=== PATIENT | female | born 1975 | race Two or more races ===

== ENCOUNTER 2024-01-21 09:30 | Emergency (ER) | payer MEDICAID ==
--- NOTE | 2024-01-21 09:51 | ED Physician Documentation ---
PD HPI URI - Stated complaint Stated Complaint: SORE THROAT,SOA,CRACKLING,LOWER BACK PX - Chief complaint Chief Complaint: Resp - History obtained from History obtained from: Patient - History of Present Illness Timing - onset: How many days ago (6) Timing duration: Days (6) Timing details: Abrupt onset, Still present Associated symptoms: Chills, Rhinorrhea, Dry cough, Chest pain, Dyspnea. No: NVD Contributing factors: No: Sick contact, Travel, Immunocompromised Similar symptoms before: Has not had sx before Review of Systems Constitutional: reports: Chills, Myalgias, Fatigue Nose: reports: Rhinorrhea / runny nose, Congestion Throat: denies: Sore throat Cardiac: reports: Chest pain / pressure Respiratory: reports: Dyspnea, Cough, Wheezing GI: reports: Nausea. denies: Vomiting, Diarrhea Skin: denies: Rash PD PAST MEDICAL HISTORY - Past Medical History Past Medical History: Yes Cardiovascular: None Respiratory: None Neuro: None Endocrine/Autoimmune: None GI: None [employer]: None : Kidney stones HEENT: None Psych: None Musculoskeletal: Osteoarthritis Derm: None - Past Surgical History Past Surgical History: Yes General: Appendectomy - Present Medications Home Medications: Ambulatory Orders Medication Instructions Recorded Confirmed Albuterol Sulf [Ventolin Hfa 1 - 2 puffs INH Q4HR PRN #1 each 01/21/24 Inhaler] Benzonatate [Tessalon] 100 mg PO TID PRN #20 cap 01/21/24 HYDROcod/ACETAM 5/325 [[place] 5/325] 1 ea PO Q6H PRN #10 tablet 01/21/24 Ondansetron Odt [Zofran] 4 mg TL Q6H PRN #10 tablet 01/21/24 dexAMETHasone [Decadron] 4 mg PO DAILY #5 tablet 01/21/24 - Allergies Allergies/Adverse Reactions: Allergies Allergy/AdvReac Type Severity Reaction Status Date / Time No Known Drug Allergies Allergy Verified 01/21/24 09:33 - Social History Does the pt smoke?: No Smoking Status: Never smoker Does the pt drink ETOH?: No Does the pt have substance abuse?: No - Immunizations Immunizations are current?: Yes PD ED PE NORMAL - Vitals Vital signs reviewed: Yes - General General: Alert and oriented X 3, Well developed/nourished, Other (appears in pain with coughing and deep breathing. ) - Neck Neck: Supple, no meningeal sign, No adenopathy - Cardiac Cardiac: RRR, No murmur - Respiratory Respiratory: No respiratory distress. No: Clear bilaterally (exp wheezes without coarse sounds. ) - Abdomen Abdomen: Soft, Non tender - Derm Derm: Normal color, Warm and dry Results - Vitals Vitals: Oxygen O2 Source Room air - Labs Labs: Microbiology 01/21/24 09:45 Group A Strep Throat Culture - Preliminary Throat CULTURE IN PROGRESS. RESULTS TO FOLLOW. Laboratory Tests 01/21/24 01/21/24 01/21/24 09:45 09:45 10:29 Sodium 137 Potassium 3.5 Chloride 106 Carbon Dioxide 24 Anion Gap 7.0 BUN 10 Creatinine 0.5 L Estimated GFR (MDRD) 131 Glucose 102 Calcium 9.2 Total Bilirubin 0.7 AST 20 ALT 33 Alkaline Phosphatase 87 Total Protein 7.1 Albumin 3.9 Globulin 3.2 Albumin/Globulin Ratio 1.2 Lipase < 10 L Nasal Adenovirus (PCR) NOT DETECTED Nasal B. parapertussis DNA (PCR) NOT DETECTED Nasal Coronavir 229E PCR NOT DETECTED Nasal Coronavir HKU1 PCR DETECTED A Nasal Coronavir NL63 PCR NOT DETECTED Nasal Coronavir OC43 PCR DETECTED A Nasal Enterovir/Rhinovir PCR NOT DETECTED Nasal Influenza B PCR NOT DETECTED Nasal Influenza A PCR NOT DETECTED Nasal Parainfluen 1 PCR NOT DETECTED Nasal Parainfluen 2 PCR NOT DETECTED Nasal Parainfluen 3 PCR NOT DETECTED Nasal Parainfluen 4 PCR NOT DETECTED Nasal RSV (PCR) NOT DETECTED Nasal B.pertussis DNA PCR NOT DETECTED Nasal C.pneumoniae (PCR) NOT DETECTED Bhupendra Human Metapneumo PCR NOT DETECTED Nasal M.pneumoniae (PCR) NOT DETECTED Nasal SARS-CoV-2 (PCR) NOT DETECTED Group A Strep Rapid Negative - Rads (name of study) chest xray Relevant Findings:: Prelim report reviewed (bibasilar atelectasis vs small infiltrates. ), EMP independent interpretation of test PD Medical Decision Making - ED course Complexity details: reviewed results (chest xray with atelectasis vs small infiltrates. her symptoms more c/w viral and does test positive for viral illness. ), considered differential (viral URI and bronchitis with positive viral PCR. Having notable pain and cough with wheezing. Can treat symptoms with inhaler, steroids, cough medication and hydrocodone for pain/cough suppression due to degree of pain she is having. ), d/w patient Departure - Departure Disposition: 01 Home, Self Care Clinical Impression: Dyspnea, Cough, Other coronavirus as the cause of diseases classified elsewhere Condition: Stable Record reviewed to determine appropriate education?: Yes Instructions: ED URI Viral W Wheezing Prescriptions: Albuterol Sulf [Ventolin Hfa Inhaler] 1 - 2 puffs INH Q4HR PRN #1 each PRN Reason: Shortness Of Air/Wheezing dexAMETHasone [Decadron] 4 mg PO DAILY #5 tablet HYDROcod/ACETAM 5/325 [[place] 5/325] 1 ea PO Q6H PRN #10 tablet PRN Reason: Pain Benzonatate [Tessalon] 100 mg PO TID PRN #20 cap PRN Reason: Cough Ondansetron Odt [Zofran] 4 mg TL Q6H PRN #10 tablet PRN Reason: Nausea / Vomiting Comments: Your chest x-ray is clear without any signs of pneumonia. Your blood test are good with normal kidney function electrolytes and blood sugar. I presume you are having some pains from a viral illness in the fluid retention. But again no signs of kidney failure. Your strep test is negative. Your respiratory viral panel test is positive for 2 variations of coronavirus, non-COVID. These are more simple upper respiratory infections but still could have the wheezing and cough etc. I would suggest treating with albuterol inhaler 2 to 3 puffs 4 times a day regularly for the next several days to week. Also Decadron anti-inflammatory for bronchial inflammation. Stay well-hydrated. Tylenol or ibuprofen as needed for pains. Benzonatate if needed for cough. You could also add hydrocodone every 6-8 hours if needed for pain or cough. This can act as a good cough suppressant. I sent your prescription to preferred pharmacy. It would make sense to be off work today and and couple more days with this illness. I am prescribing a short course of narcotic pain medication for you. These are potentially dangerous and addictive medications that should be used carefully. These medications may constipate you. Take an [id number] stool softener such as docusate twice daily with plenty of water while taking these medications. If you go 24 hours without a bowel movement, take [id number] MiraLAX, per package instructions. Do not drink or drive while taking these medications. If you received narcotic or sedating medications while in the emergency de partment do not drive for 24 hours. Store this medication in a safe, secure place and out of reach of children. It is a violation of federal law to give or sell this medication to another person or to use in a manner other than prescribed. The ED will not refill narcotic prescriptions, including prescriptions lost or stolen. You can dispose of unwanted medications at the [facility]'s office or at several pharmacies such as [facility]. Forms: PCP List, Activity restrictions Discharge Date/Time: 01/21/24 11:22
[2024-01-21 10:05] LABS: RAPID STREP SCREEN Negative (Negative)
[2024-01-21] MEDS: dexAMETHasone 4 MG TABLET PO STA (10:22)
[2024-01-21] MEDS: BENZONATATE 100 MG CAPSULE PO STA (10:23)
[2024-01-21] MEDS: IBUPROFEN 600 MG TABLET PO STA (10:23)
[2024-01-21] MEDS: ALBUTEROL NEB 2.5 MG/3 ML INH STA (10:37)
[2024-01-21 10:44] LABS: B. PARAPERTUSSIS- RESP PCR PAN NOT DETECTED; B. PERTUSSIS- RESP PCR PANEL NOT DETECTED; C. PNEUMONIAE- RESP PCR PANEL NOT DETECTED; CORONAVIRUS 229E-RESP PCR NOT DETECTED; CORONAVIRUS HKU1-RESP PCR DETECTED; CORONAVIRUS NL63-RESP PCR NOT DETECTED; CORONAVIRUS OC43-RESP PCR DETECTED; HUMAN METAPNEUMOVIRUS NOT DETECTED; INFLUENZA A- RESP PCR PANEL NOT DETECTED; INFLUENZA B - RESP PCR PANEL NOT DETECTED; M. PNEUMONIAE- RESP PCR PANEL NOT DETECTED; PARAINFLUENZA VIRUS 1 NOT DETECTED; PARAINFLUENZA VIRUS 2 NOT DETECTED; PARAINFLUENZA VIRUS 3 NOT DETECTED; PARAINFLUENZA VIRUS 4 NOT DETECTED; RHINOVIRUS/ENTEROVIRUS NOT DETECTED; RSV- RESP PCR PANEL NOT DETECTED; SARS-CoV-2 -RESP PCR PANEL NOT DETECTED
[2024-01-21 10:53] LABS: ALBUMIN 3.9 g/dL (3.2-5.5); ALBUMIN/GLOBULIN RATIO 1.2 (1.0-2.2); ALKALINE PHOSPHATASE 87 IU/L (42-121); ALT ALANINE AMINOTRANSFERASE 33 IU/L (10-60); AST ASPARTATE AMINOTRANSFERASE 20 IU/L (10-42); BILIRUBIN,TOTAL 0.7 mg/dL (0.2-1.0); BUN - BLOOD UREA NITROGEN 10 mg/dL (6-20); CALCIUM 9.2 mg/dL (8.5-10.3); CARBON DIOXIDE - CO2 24 mmol/L (21-32); CHLORIDE 106 mmol/L (101-111); CREATININE 0.5 mg/dL (0.6-1.3); GFR - MDRD 131 (>89); GLUCOSE 102 mg/dL (74-104); LIPASE < 10 U/L (11-82); POTASSIUM 3.5 mmol/L (3.5-4.5); SODIUM 137 mmol/L (135-145); TOTAL PROTEIN 7.1 g/dL (6.4-8.9)
[2024-01-21 11:27] VITALS: BP 134/82; O2SAT 96
--- NOTE | 2024-01-21 13:33 | XRAY Report ---
PROCEDURE: Chest 1V INDICATIONS: cough/dyspnea TECHNIQUE: One view of the chest was acquired. COMPARISON: None. FINDINGS: Surgical changes and devices: None. Lungs and pleura: No pleural effusions or pneumothorax. Submaximal inspiration. Vascular crowding. P atchy bibasilar atelectasis. Cannot exclude interstitial infiltrates. Mediastinum: Mediastinal contours appear normal. Heart size is normal. Bones and chest wall: No suspicious bony lesions. Overlying soft tissues appear unremarkable. IMPRESSION: Submaximal inspiration. Vascular crowding. Patchy bibasilar atelectasis. Cannot exclude interstitial infiltrates. Reviewed by: Maciej Sykes MD on 01/21/2024 10:31 AM [facility] Approved by: Maciej Sykes MD on 01/21/2024 10:31 AM [facility] Station ID: [id number]
== END 2024-01-21 11:22 | disposition home or self-care (01) ==
LOC: ED 09:30
DX: B34.2 Coronavirus infection, unspecified (principal)
CPT/HCPCS: 36415; 71045; 80053; 83690; 87070; 87430; 87633; 94640; 99284; A9270; J8540